=== PATIENT | female | born 1940 | race Caucasian/White ===

== ENCOUNTER 2020-03-12 08:09 | Observation (INO) | payer OTHER, BC ==
[2020-03-05 13:44] LABS: HEMATOCRIT 40.6 % (37.0-47.0); HEMOGLOBIN 13.5 gm/dL (12.0-15.0); MCHC 33.2 g/dL (28.0-37.0); MCV 99.3 fL (80.0-100.0); RBC 4.09 mil/uL (4.20-5.00); RDW 12.6 % (10.5-14.5); WBC 5.3 thou/uL (4.0-11.0)
[2020-03-05 13:46] LABS: URINE BILIRUBIN NEGATIVE (Negative); URINE BLOOD NEGATIVE (Negative); URINE CLARITY CLEAR; URINE COLOR YELLOW; URINE GLUCOSE-RANDOM* NEGATIVE (Negative); URINE KETONES NEGATIVE (Negative); URINE LEUKOCYTES-REFLEX NEGATIVE (Negative); URINE NITRITE-REFLEX NEGATIVE (Negative); URINE PROTEIN (DIPSTICK) NEGATIVE (Negative); URINE SPECIFIC GRAVITY <= 1.005 (1.005-1.035); URINE UROBILINOGEN 0.2 E.U./dl (0.2-1.0)
[2020-03-05 13:48] LABS: ALBUMIN 4.3 g/dL (3.4-5.0); CALCIUM 9.7 mg/dL (8.5-10.1); CREATININE 0.9 mg/dL (0.6-1.0); POTASSIUM 5.1 mmol/L (3.5-5.1)
[2020-03-05 13:54] LABS: PROTIME 10.7 Seconds (9.3-11.4)
--- NOTE | 2020-03-06 08:02 | EKG ---
[facility] [place] [address] ELECTROCARDIOGRAM REPORT Name: MARKUS NAILS Room #: PRE IN M.R.#: [id number] Admission: Attend Phys: Cedrick Schwab MD Discharge: Date of : 40 Report #: [id number] THIS REPORT FOR: cc: Khai Arreguin,Khai Cohen,Daron Menon MD [facility] ~ THIS REPORT FOR: //name// [facility] Test Date: 2020-03-05 Test Time: 13:23:29 Pat Name: MARKUS NAILS Department: Room: Gender: [employer] Attendant: Mary FISHER : 1940 Requested By: Cedrick Schwab Order Number: [id number] MD: Daron Lo Measurements Intervals [place] Rate: 74 P: 41 OR: 174 QRS: 8 QRSD: 85 T: 13 QT: 380 QTc: 422 Interpretive Statements Sinus rhythm No significant abnormality No previous ECG available for comparison Electronically Signed On 03-06-2020 8:00:34 CDT by Daron Lo [email or web address] <ELECTRONICALLY SIGNED> By: Daron Lo MD, [facility] 03/06/20 0800 1323 1323 Daron Lo MD, [facility] /EPI
[~2020-03-12] VITALS: Ht 167.6 cm; Wt 78.5 kg
[~2020-03-12 08:09] MED LIST: ASA81BEC PO; LIPITOR10 MG PO; MEGARED OMEGA-1 EAC1 PO; MELOXICAM15 MG PO; PEPCID AC20 MG PO; PRESERVISION L1 EACH PO; PRINIVIL10 MG PO; SLOW-MAG64 M1 PO; VESICARE10 M1 PO; VITAMIN D325 MC3 PO; XALATAN2.5 M1 OPHTHALMIC
[2020-03-12 09:10] VITALS: BP 150/75
[2020-03-12 13:15] VITALS: BP 113/99
[2020-03-12 15:36] VITALS: BP 139/58
--- NOTE | 2020-03-12 16:27 | NUR ---
PT ADMITTTED REALTED TO RIGHT TOTAL KNEE REPLACEMENT. CM REVIEWED CHART AND SPOKE [facility] CARE TEAM. CM CALLED AND SPOKE WITH PT THIS DAY. PT SEEMS A&O X4. CM ROLE INTRODUCED. PT INDICATED SHE LIVES IN WHAT SOUNDS LIKE A DUPLEX WITH FAMILY. SHE INDICATED THERE IS 1 STEP TO ENTER AND 13 STEPS TO MAIN LIVING AREA. 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 SHE HAD GOTTEN A FWW FOR USE UPON DC. PT IS SET UP WITH OP PT AT [facility] IN [place] ON THURSDAY. ANTICPATE NO NEEDS UPON DC.
--- NOTE | 2020-03-12 18:45 | NUR ---
PT RECEIVED FROM THE REC ROOM AT 1300 ALERT AND IN NO ACUTE DISTRESS. RT KNEE KELLY DSNG INTACT W/ POLAR PAC TEDS AND SCD'S. PT UP TO THE BSC AND AMBULATED THE HALLS W/ THERAPY AND DID WELL. EATING AND DRINKING. PLAN ON DC IN AM.
[2020-03-12 19:26] VITALS: BP 141/62
--- NOTE | 2020-03-13 01:48 | NUR ---
ASSUMED PT CARE AT 1900. PT HAVING LOTS OF ANXIETY AND IS TEARFUL TONIGHT DUE TO HOSPITAL STAY, FEAR ABOUT TAKING NARCOTICS. THIS NURSE SAT WITH HER FOR AWHILE, EXPLAINED EVERYTHING GOING ON AND PT SEEMED TO RELAX. SHE REPORTS NO PAIN - ONLY SCHEDULED MORPHINE GIVEN. UP TO BSC WITH ASSIST, STEADY ON FEET. R KNEE DRESSING D/C/I WITH POLAR PACK APPLIED. FLUIDS AND ANTIBIOTICS INFUSING PER ORDER. SHE IS ANXIOUSLY HOPING SHE CAN GO HOME TOMORROW. CURRENTLY SLEEPING IN BED W/ NO COMLPAINTS AT THIS TIME.
[2020-03-13 03:49] VITALS: BP 114/61
[2020-03-13 05:25] LABS: HEMATOCRIT 33.6 % (37.0-47.0); HEMOGLOBIN 11.1 gm/dL (12.0-15.0); MCH 32.8 pg (26.0-34.0); MCV 99.4 fL (80.0-100.0); RBC 3.37 mil/uL (4.20-5.00); RDW 12.9 % (10.5-14.5); WBC 12.8 thou/uL (4.0-11.0)
[2020-03-13 07:54] VITALS: BP 132/68
[2020-03-13 11:39] VITALS: BP 132/68
--- NOTE | 2020-03-13 12:38 | NUR ---
ASSUMED CARE OF THE PT AT 0700. PT IS UP WITH ASSIST W GAIT BELT AND WALKER TO TOILET. NO C/O PAIN, PAIN MED SGIVEN FOR PT. IMER HOSE, KELLY DRESSING AND POLAR PACK IN PLACE. L AC DRY AND INTACT, REMOVED, PT DISCHARGING TO HOME, CLEARED BY PT. NO ADVERSE REACTIONS WITH NARCOTICS GIVEN. CALL LIGHT IS WITHIN REACH, BED IN THE LOWEST POSITION AND FALL PRECAUTIONS IN PLACE. ALL OF PT BELONGINGS PACKED, WILL CONTINUE TO MONITOR THE PT UNTIL D/C.
--- NOTE | 2020-03-22 10:06 | O ---
[facility] [place] [address] OPERATIVE REPORT Name: MARKUS NAILS Room #: 434-P [facility] Souleymane Cheney#: [id number] Admission: 03/12/20 Attend Phys: Cedrick Schwab MD Discharge: 03/13/20 Date of : 40 Report #: [id number] THIS REPORT FOR: cc: Khai Arreguin,Khai Loya,Cedrick Simmons MD ~ CC: Khai Schwab DATE OF SERVICE: 03/12/2020 PREOPERATIVE DIAGNOSIS: Right knee osteoarthritis. POSTOPERATIVE DIAGNOSIS: Right knee osteoarthritis. PROCEDURE: Right total knee arthroplasty using Navio robotic assistance. SURGEON: Cedrick Schwab MD. INSTRUCTIONAL TECHNOLOGIST: Darya Edward PA-C. INDICATIONS FOR INSTRUCTIONAL TECHNOLOGIST: Throughout the case, extensive retraction and manipulation of the knee was required. This was afforded to me by my enrichment assistant. ANESTHESIA: LMA with an adductor canal block. IMPLANTS: [employer] size 5 Journey II BCS cobalt chrome femur, size 4 tibia, size 11 polyethylene and size 32 patella. TOURNIQUET TIME: 49 minutes. ESTIMATED BLOOD LOSS: 25 mL. COMPLICATIONS: None. SPECIMENS: None. CONDITION UPON LEAVING THE OPERATING ROOM: Stable. INDICATIONS FOR PROCEDURE: The patient is a 79-year-old female with right knee osteoarthritis. She had failed conservative measures for this and after discussion with her, she elected for right total knee arthroplasty. DESCRIPTION OF PROCEDURE: Risks, benefits, alternatives, complications were discussed in detail with the patient including but not limited to risk of anesthesia, risk of damage to nerves, arteries, blood vessels, risk for [facility] [address] [place] [address] OPERATIVE REPORT Name: MARKUS NAILS Room #: 434-P [facility] Souleymane Cheney#: [id number] Admission: 03/12/20 Attend Phys: Cedrick Schwab MD Discharge: 03/13/20 Date of : 40 Report #: [id number] infection, bleeding, risk for continued knee pain and need for reoperation. Informed consent was obtained from the patient. Right knee was appropriately marked in the preoperative holding area. IV Ancef was given for preoperative antibiotic. Adductor canal block was placed by Anesthesia. She was brought to the operating room and placed in supine position on operating room table. LMA anesthesia was induced without complication. Tourniquet was placed on the right thigh. Right lower extremity was prepped and draped in normal sterile fashion. Timeout was performed properly identifying the patient and procedure as well as the instrumentation and implants. All in the operating room were in agreement. Right lower extremity was exsanguinated, tourniquet was inflated. Tourniquet time was 49 minutes. Standard midline approach to the knee was made with 10 blade through the skin. Dissection was taken down sharply to the fascia. Deep flaps were developed medially and laterally. Fresh 10 blade was used to make a medial parapatellar arthrotomy and the knee was inspected. There was severe medial compartment osteoarthritis with moderate lateral and patellofemoral involvement. It was decided to proceed with total knee arthroplasty. ACL and PCL were removed sharply. Reference pins were placed in the femur and the tibia. The knee was then digitally mapped using the Scaleogy robotic system. Intraoperative plan was made and we sized the size 5 femur with a size 4 tibia and a size 10 spacer. After acceptance of the intraoperative plan, the distal femoral cut was made with a Navio bur. The distal femoral cutting block was pinned in place and chamfer cuts were made. Attention was then turned to the tibia. Remainder of the meniscus were removed with Bovie cautery. Tibial resection guide was pinned in place using the Navio for placement and tibial resection was made. Flexion and extension gaps were then checked and found to have good balance in flexion and extension both medially and laterally. Tibia was sized, found to be a size 4. Size 4 tibial trial was placed, pinned and punched. A size 5 femoral trial was placed and box cut was made. This was then trialed with a size 10 and then 11 polyethylene and a size 11 polyethylene demonstrated 1-2 millimeter of laxity medially and laterally throughout range of motion of the knee. A 9 mm was resected from the posterior surface of the patella and a size 32 patellar trial button was placed. Knee was taken through range of motion, found to be stable, found to have good patellar tracking. After this, trial components were removed. Bony ends were thoroughly irrigated with normal saline. A final size 4 tibia, size 5 Journey II BCS cobalt chrome femur and a size 32 patella were cemented in place using standard cementation techniques. While the cement cured, a periarticular injection consisting of morphine, ropivacaine, epinephrine and Toradol was placed around the knee joint capsule. After the cement cured, tourniquet was deflated. Hemostasis was obtained with Bovie cautery. A final size 11 polyethylene was placed. A gram of vancomycin was placed deep in the joint. Fascia was closed with 0 Vicryl, skin was closed with 2-0 Vicryl, 3-0 Monocryl. Dermabond and a KELLY dressing [address] [address] OPERATIVE REPORT Name: MARKUS NAILS Room #: 434-P [facility] Souleymane Cheney#: [id number] Admission: 03/12/20 Attend Phys: Cedrick Schwab MD Discharge: 03/13/20 Date of : 40 Report #: [id number] was applied. The patient tolerated this procedure well and went to recovery room under care of anesthesia postoperatively. <ELECTRONICALLY SIGNED> By: Cedrick Schwab MD 03/22/20 1006 [id number] [id number] Cedrick Schwab MD /nt
== END 2020-03-13 13:42 | disposition home or self-care (01) ==
LOC: 4S 08:09 → TBA 08:09 → 4S 08:09 → PRE 12:27 → 4S 13:07 → PRE 19:51 → 4S 03-13 13:42
PROVIDERS: ADMIT Orthopaedic Surgery
DX: M17.11 Unilateral primary osteoarthritis, right knee (principal); Z03.818 Encounter for observation for suspected exposure to other biological agents ruled out; M25.561 Pain in right knee
CPT/HCPCS: 10102; 50010; 50101; 50415; 50954; 51130; 51225; 51320; 52001; 52282; 53000; 53078; 54118; 56527; 56528; 57095; 57103; 57110; 57127; 57180; 57952; 62110; 62900; 64039; 70005